=== PATIENT | male | born 1925 | race Caucasian/White ===

== ENCOUNTER 2016-05-12 15:41 | Emergency (ER) | payer OTHER ==
[~2016-05-12] VITALS: Ht 162.6 cm; Wt 80.0 kg
[2016-05-12] MEDS ORDERED: LISI-313 PO (16:01)
[2016-05-12] MEDS ORDERED: TERA10CA42 PO (16:01)
[2016-05-12] MEDS ORDERED: DOCU-159 PO (16:02)
[2016-05-12] MEDS ORDERED: CARV6.2579 PO (16:02)
[2016-05-12] MEDS ORDERED: [UNRECOGNIZED DRUG - CODE] PO (16:05)
[2016-05-12] MEDS ORDERED: OMEP20CA16 PO (16:05)
[2016-05-12] MEDS ORDERED: POTA10TA18 PO (16:06)
[2016-05-12] MEDS ORDERED: CHOL100062 PO (16:06)
[2016-05-12] MEDS ORDERED: CYAN500T46 PO (16:11)
[2016-05-12] MEDS ORDERED: FINA5TAB4 PO (16:11)
[2016-05-12] MEDS ORDERED: FURO20TA3 PO (16:12)
[2016-05-12] MEDS ORDERED: ASPI-664 PO (16:13)
[2016-05-12] MEDS ORDERED: ATOR40TA68 PO (16:13)
[2016-05-12 16:59] VITALS: Ht 162.6 cm; Wt 80.0 kg
[2016-05-12 17:10] LABS: ADD UMIC YES; URINE BILIRUBIN (Dip) NEGATIVE (NEGATIVE); URINE BLOOD (Dip) 1+ (NEGATIVE); URINE COLOR LT. YELLOW (YELLOW); URINE GLUCOSE (Dip) NEGATIVE (NEGATIVE); URINE KETONES (Dip) NEGATIVE (NEGATIVE); URINE LEUKOCYTE ESTERASE (Dip) 2+ (NEGATIVE); URINE NITRITE (Dip) NEGATIVE (NEGATIVE); URINE TOTAL PROTEIN (Dip) NEGATIVE (NEGATIVE); URINE UROBILINOGEN (Dip) 0.2 E.U./dL (0.1-1.0)
[2016-05-12 17:23] LABS: BACTERIA,URINE MODERATE
[2016-05-12] MEDS ORDERED: CEPHALEXIN 500 MG CAP PO ONE (17:30)
[2016-05-12] MEDS ORDERED: CEPH-443 PO (17:40)
[2016-05-12 18:14] VITALS: BP 132/67; PULSE 77; RESP 18
--- NOTE | 2016-05-12 22:52 | ERD ---
ER Documentation Chief Complaint Date/Time DATE: 05/12/16 TIME: 22:49 Chief Complaint CATHETER HPI 89-year-old man with a history of atonic bladder presents with dislodged Caraballo catheter, his intraurethral catheter was placed 2 months ago. He denies recent antibiotic use, no back pain, no fevers or chills, no weight loss, no chest pain or shortness of breath. ROS All systems reviewed and are negative except as per history of present illness. Medications Home Meds Active Scripts Cephalexin* (Keflex*) 500 Mg Capsule, 500 MG PO QID for 5 Days, CAP Prov:SABA RAMIREZ MD 05/12/16 Reported Medications Aspirin* (Aspirin* EC) 81 Mg Tablet., 81 MG PO DAILY, TAB 05/12/16 Atorvastatin* (Atorvastatin*) 40 Mg Tablet, 40 MG PO QHS, #30 TAB 05/12/16 Furosemide* (Furosemide*) 20 Mg Tablet, 20 MG PO DAILY, #60 TAB 05/12/16 Finasteride* (Finasteride*) 5 Mg Tablet, 5 MG PO DAILY, TAB 05/12/16 Cyanocobalamin* (Vitamin B12*) 500 Mcg Tab, 1000 MCG PO DAILY, TAB 05/12/16 Potassium Citrate* (Potassium Citrate* ER) 10 Meq Tablet.sa, 20 MEQ PO DAILY, TAB.SA 05/12/16 Cholecalciferol* (Vitamin D3*) 1,000 Unit Tablet, 1000 UNIT PO DAILY, TAB 05/12/16 Omeprazole* (Omeprazole*) 20 Mg Capsule.dr, 20 MG PO BID, #60 CAP 05/12/16 Calcium Citrate/Vitamin D3 (CALCIUM CIT-VIT D 315-200 TAB) 1 Each Tablet, 1 EACH PO BID, TAB 05/12/16 Docusate Sodium* (Docusate Sodium*) 100 Mg Capsule, 100 MG PO BID, #60 CAP 05/12/16 Carvedilol* (Carvedilol*) 6.25 Mg Tablet, 6.25 MG PO BID, #60 TAB 05/12/16 Lisinopril* (Lisinopril*) 5 Mg Tablet, 5 MG PO DAILY, #30 TAB 05/12/16 Terazosin Hcl* (Terazosin Hcl*) 10 Mg Capsule, 10 MG PO HS, CAP 05/12/16 Allergies Allergies: Coded Allergies: lovastatin (Verified Allergy, Mild, REACTION, 05/12/16) PMhx/Soc Hypertension, bilateral lower extremity paresis, dyslipidemia, CHF, atonic bladder Hx Alcohol Use: No Hx Substance Use: No Hx Tobacco Use: No Smoking Status: Never smoker FmHx Family History: No diabetes Physical Exam Vitals Vital Signs Date Time Temp Pulse Resp B/P Pulse Ox O2 Delivery O2 Flow Rate FiO2 05/12/16 18:14 77 18 132/67 99 Room Air 05/12/16 16:59 98.0 86 18 142/67 94 Physical Exam GENERAL: Well-developed, well-nourished, well-hydrated, in no apparent distress , looks nontoxic in appearance HEENT: Moist mucous membranes, pink conjunctiva, no cervical spine tenderness or step-off deformities, no goiter, no jaundice or icterus, extraocular movements intact without pain. No submandibular induration, and no pharyngeal erythema NEURO: Alert and oriented 3, cranial nerves II through XII intact bilaterally, pupils equal round reactive to light, no focal deficits or facial asymmetry, sensation intact distally Strength 5/5 in upper and lower extremities bilaterally CARDIAC: Regular rate and rhythm, no murmurs rubs or gallops LUNGS: Clear bilaterally no wheezing crackles or stridor ABDOMEN: Soft nontender, no guarding, no rigidity, no rebound, no psoas sign no obturator sign. Normoactive bowel sounds SKIN: Warm and dry to touch, no abrasions, contusions, or hematomas, no lacerations, no ecchymosis, no target lesions, and without ulcers EXTREMITIES: No clubbing cyanosis or edema, calves are bilaterally symmetrical, no Homans sign, no popliteal cord sign. Distal pulses equal and bilateral PSYCH: Normal affect without agitation or irritability Results 24 hrs Laboratory Tests Test 05/12/16 16:45 Urine Bacteria MODERATE Urine Bilirubin NEGATIVE Urine Clarity SLIGHTLY CLOUDY Urine Color LT. YELLOW Urine Epithelial Cells FEW Urine Glucose NEGATIVE% Urine Hemoglobin 1+ Urine Ketones NEGATIVE Urine Leukocyte Esterase 2+ Urine Microscopic RBC 5-10/HPF Urine Microscopic WBC >200/HPF Urine Nitrite NEGATIVE Urine Specific [place] 1.015 Urine Total Protein NEGATIVE Urine Urobilinogen 0.2 E.U./dL Urine pH 6.0 Current Medications Medications (Trade) Dose Ordered Sig/Oh Route PRN Reason Start Time Stop Time Status Last Admin Dose Admin Cephalexin (Keflex) 500 mg ONCE ONCE PO 05/12/16 17:30 05/12/16 17:31 DC 05/12/16 17:53 Procedures/MDM Patient's Caraballo catheter was placed and a leg bag was added. Urine analysis was positive for infection, urine cultures have also been ordered results are pending I will follow-up. I treated the patient here with cephalexin 500 mg p.o. and wrote a prescription for 1 week of cephalexin. I also provided both verbal and written recommendations to follow up with his PMD and neurologist for continued outpatient management after definitive management here. I spoke to the [facility] physician, [place] authorization number is [id number]. Differential diagnoses considered, included but not limited to acute coronary syndrome, pulmonary embolism, aortic dissection, abdominal aortic aneurysm, sepsis, stroke, meningitis, encephalitis, pneumonia, appendicitis, cholecystitis , bowel obstruction, pyelonephritis, nephrolithiasis, cystitis, as well as metabolic, hematologic, and electrolyte abnormalities. As well as abscess, cellulitis, fractures, and dislocations. Patient feels much better at this time, and vital signs are normal, symptoms have improved. I did give strict instructions to return to the ED if symptoms continue or worsen, patient will otherwise follow-up with primary care physician. Patient understood instructions and agreed to plan. Departure Diagnosis: Primary Impression: UTI (urinary tract infection) Urinary tract infection type: acute cystitis Hematuria presence: without hematuria Qualified Code: N30.00 - Acute cystitis without hematuria Additional Impression: Bladder atonia Condition: Good Patient Instructions: Bladder Infection, Male (Adult) SABA RAMIREZ MD May 12, 2016 22:52
== END 2016-05-12 18:25 | disposition home or self-care (01) ==
LOC: E/R 15:41 → EDSEX 15:41 → E/R 18:25
DX: N30.00 Acute cystitis without hematuria (principal); R40.2252 Coma scale, best verbal response, oriented, at arrival to emergency department; N31.2 Flaccid neuropathic bladder, not elsewhere classified; I10 Essential (primary) hypertension; I50.9 Heart failure, unspecified; R40.2362 Coma scale, best motor response, obeys commands, at arrival to emergency department; R40.2142 Coma scale, eyes open, spontaneous, at arrival to emergency department; Y82.8 Other medical devices associated with adverse incidents; Z79.82 Long term (current) use of aspirin
CPT/HCPCS: 81001; 81003; 87086